=== PATIENT | male | born 1965 | race American Indian/Alaskan Native ===

== ENCOUNTER 2017-01-16 10:29 | Emergency (ER) | payer BC ==
[2017-01-16 10:30] VITALS: BMI 39.2
[2017-01-16 10:36] VITALS: RESP 20; O2SAT 96
[2017-01-16] MEDS ORDERED: Oxycodone/Acetaminophen 5/325 mg Tab PO STA ×2 (11:02→15:36)
[2017-01-16] MEDS ORDERED: Oxycodone/Acetaminophen 5/325 mg Tab ONE ×2 (11:11→15:48)
[2017-01-16 11:24] LABS: BASO # 0.1 K/uL (0.0-0.2); BASO % 1.3 % (0.0-2.0); EOS # 0.3 K/uL (0.0-0.7); EOS % 4.5 % (0.0-4.0); HEMATOCRIT 43.6 % (35.0-51.0); LYMPH # 2.1 K/uL (1.0-4.3); LYMPH % 33.6 % (20.0-40.0); MEAN CELL VOLUME 97.8 fL (80.0-94.0); MEAN CORPUSCULAR HEMOGLOBIN 31.9 pg (27.0-31.0); MEAN CORPUSCULAR HGB CONC 32.6 g/dL (33.0-37.0); MEAN PLATELET VOLUME 9.9 fL (7.2-11.7); MONO # 0.8 K/uL (0.0-0.8); MONO % 13.5 % (0.0-10.0); NRBC % 0.1 % (0.0-2.0); RED CELL DISTRIBUTION WIDTH 13.6 % (11.5-14.5); WHITE BLOOD COUNT 6.2 K/uL (4.8-10.8)
[2017-01-16 11:42] LABS: CHLORIDE 105 mmol/L (98-107); POTASSIUM 3.7 mmol/L (3.6-5.2); SODIUM 140 mmol/L (132-148)
[2017-01-16 11:45] LABS: ALB/GLOB RATIO 1.3 (1.0-2.1); ALKALINE PHOSPHATASE 58 U/L (38-126); ALT/SGPT 26 U/L (21-72); AST/SGOT 19 U/L (17-59); BILIRUBIN,TOTAL 0.7 mg/dL (0.2-1.3); BLOOD UREA NITROGEN 15 mg/dL (9-20); CARBON DIOXIDE 23 mmol/L (22-30); GFR AFRICAN-AMERICAN > 60; GLUCOSE,RANDOM 109 mg/dL (75-110); TOTAL PROTEIN 6.9 g/dL (6.3-8.3)
[2017-01-16 11:46] LABS: CALCIUM 8.4 mg/dl (8.6-10.4)
[2017-01-16] MEDS ORDERED: Iodixanol 320 MG/ML 100 ML BOTTLE IV ONE (13:30)
--- NOTE | 2017-01-16 14:07 | C.PDOC ---
History Of Present Illness 51 y/o male history of cyst to left upper thigh operated on 3 weeks ago presents to ED with complaints of pain and clear drainage from surgical site. Pt states symptoms have been continuous since the operation. Pt states caregiver told him he might need CT done so he came to ED for evaluation. Denies fever, chills or any other complaints. Time Seen by Provider: 01/16/17 10:46 Chief Complaint (Nursing): Abnormal Skin Integrity History Per: Patient History/Exam Limitations: no limitations Onset/Duration Of Symptoms: Days, Persistent Current Symptoms Are (Timing): Still Present Quality Of Symptoms: Painful, Draining Severity: Mild Recent travel outside of the [place]: No Past Medical History Reviewed: Historical Data, Nursing Documentation, Vital Signs Vital Signs: Last Vital Signs Temp 97.5 F L 01/16/17 15:15 Pulse 90 01/16/17 15:15 Resp 20 01/16/17 15:15 BP 120/70 01/16/17 15:15 Pulse Ox 96 01/16/17 19:13 - Medical History PMH: Deep Vein Thrombosis, Pneumonia (COMMUNITY ACQUIRED), Pulmonary Embolism - [facility] Procedures BONE MARROW BIOPSY (10/27/13) ESOPHAGOGASTRODUODENOSCOPY [EGD] W/CLOSED BIOPSY (10/27/13) INJECT/INFUSE NEC (07/11/03) LYMPHATIC STRUCT BIOPSY (10/27/13) OPEN BIOPSY OF STOMACH (10/27/13) PERITONEAL BIOPSY (10/27/13) TETANUS TOXOID ADMINIST (01/09/06) Family History: States: Unknown Family Hx - Social History Hx Tobacco Use: No Hx Alcohol Use: No Hx Substance Use: No Review Of Systems Except As Marked, All Systems Reviewed And Found Negative. Constitutional: Negative for: Fever, Chills Musculoskeletal: Positive for: Other (pain and drainage at left upper thigh) Physical Exam - Physical Exam Appears: Non-toxic, No Acute Distress Skin: Warm, Dry, No Rash Head: Atraumatic, Normacephalic Extremity: Normal ROM, Tenderness (diffuse left thigh), No Calf Tenderness, Other (Left thigh: 5 inch surgical wound to superior anterior aspect with 1 cm area of serous discharge) Pulses: Left Dorsalis Pedis: Normal, Right Dorsalis Pedis: Normal Neurological/Psych: Oriented x3, Normal Speech ED Course And Treatment - Laboratory Results Result Diagrams: 01/16/17 11:20 01/16/17 11:20 O2 Sat by Pulse Oximetry: 96 (room air) Pulse Ox Interpretation: Normal - CT Scan/US ct Other Rad Studies (CT/US): Radiology Report Reviewed CT/US Interpretation: Findings: The current study reveals is an apparent fluid collection within the left subcutaneous fat medial left proximal thigh which measures approximately 7.2 cm AP CC x 5.9 cm AP x 4.6 cm trans. This fluid collection has a thick rind of enhancement consistent which could represent abscess. The there are some vague infiltration changes in the immediate surrounding in the subcutaneous fat. Several small surrounding lymph nodes as well. Small suprapatellar joint effusion is present which is still likely unrelated. Degenerative osteoarthritis osteoarthritis left knee. Impression: There is a fluid collection within the subcutaneous fat left upper medial thigh that could be an abscess with thick rind of enhancement .Findings discussed with Dr. Leal at approximately 3 p.m. Progress Note: Plan: CT left lower ext with contrast, labs, percocet Medical Decision Making Medical Decision Making: REsults of CT discussed with pt Pt does not want to start with a surgeon here, he will see the surgeon in the office today. Pt given copies of all tests Return to the ED if unable to see your surgeon today Disposition Counseled Patient/Family Regarding: Diagnosis, Need For Followup - Disposition Referrals: Tony Peng MD [Staff Provider] - Disposition: HOME/ ROUTINE Disposition Time: 15:37 Condition: GOOD Additional Instructions: Follow up with you surgeon and dr peng Instructions: Postop pain (ED) Forms: General Discharge Instructions - Clinical Impression Clinical Impression: Fluid collection at surgical site - Scribe Statement The provider has reviewed the documentation as recorded by the José Miguel Farrar Provider Attestation: All medical record entries made by the José Miguel were at my direction and personally dictated by me. I have reviewed the chart and agree that the record accurately reflects my personal performance of the history, physical exam, medical decision making, and the department course for this patient. I have also personally directed, reviewed, and agree with the discharge instructions and disposition.
--- NOTE | 2017-01-16 15:04 | CT ---
PROCEDURE: CT scan of the left thigh dated 01/16/2017 HISTORY: Status post surgical removal cyst with continued swelling removal, continued swelling an COMPARISON: No prior TECHNIQUE: CT scan of the left thigh performed in standard fashion from the level of the acetabulum inferiorly to the proximal tibia following intravenous injection of approximately 100 cc of Visipaque 320 contrast material. Additional 2 dimensional sagittal and coronal reformats provided. Note that a BB surface marker was placed on the anterior surface of the perceived swelling. This CT exam was performed using one or more of the following dose reduction techniques: Automated exposure control, adjustment of the mA and/or kV according to patient size, and/or use of iterative reconstruction technique. Radiation dose: Total exam DLP = 898.64 mGy-cm. Findings: The current study reveals is an apparent fluid collection within the left subcutaneous fat medial left proximal thigh which measures approximately 7.2 cm AP CC x 5.9 cm AP x 4.6 cm trans. This fluid collection has a thick rind of enhancement consistent which could represent abscess. The there are some vague infiltration changes in the immediate surrounding in the subcutaneous fat. Several small surrounding lymph nodes as well. Small suprapatellar joint effusion is present which is still likely unrelated. Degenerative osteoarthritis osteoarthritis left knee. Impression: There is a fluid collection within the subcutaneous fat left upper medial thigh that could be an abscess with thick rind of enhancement .Findings discussed with Dr. Leal at approximately 3 p.m.
[2017-01-16 16:17] VITALS: BP 120/70; PULSE 90; TEMP 97.5
== END 2017-01-16 16:11 | disposition home or self-care (01) ==
LOC: C.ER 10:29
DX: G89.18 Other acute postprocedural pain (principal)
CPT/HCPCS: 73701; 80053; 85025; 99284; Q9967